=== PATIENT | male | born 1950 ===

== ENCOUNTER 2023-11-07 02:20 | Emergency (ER) | payer SELFPAY ==
[~2023-11-07] VITALS: Ht 180.3 cm; Wt 102.0 kg
[2023-11-07 02:28] VITALS: BP 167/94; TEMP 96.8; O2SAT 97
== END 2023-11-07 04:50 | disposition left against medical advice (07) ==
LOC: M ED 02:20 → EDBD 02:20 → M ED 04:50
DX: Z53.21 Procedure and treatment not carried out due to patient leaving prior to being seen by health care provider (principal)